=== PATIENT | male | born 1965 | race Hispanic/Latino ===

== ENCOUNTER 2024-08-05 11:06 | Emergency (ER) | payer OTHER ==
[~2024-08-05] VITALS: Ht 175.3 cm; Wt 167.8 kg
[2024-08-05 12:32] LABS: BASOPHILS # (AUTO) 0.04 K/uL (0.00-0.20); BASOPHILS % (AUTO) 0.3 % (0.0-5.0); EOSINOPHILS # (AUTO) 0.05 K/uL (0.00-0.70); EOSINOPHILS % (AUTO) 0.4 % (0.0-8.0); IMMATURE GRANULOCYTE ABSOLUTE 0.12 K/uL (0-1); LYMPHOCYTES # (AUTO) 1.1 K/uL (1.0-4.8); LYMPHOCYTES % (AUTO) 8.3 % (21.0-51.0); MEAN CORPUSCULAR HEMOGLOBIN 29.1 pg (27.0-33.0); MEAN CORPUSCULAR HGB CONC 33.6 g/dL (32.0-36.0); MEAN CORPUSCULAR VOLUME 86.7 fL (79-99); MONOCYTES % (AUTO) 7.7 % (3.0-13.0); NEUTROPHILS # (AUTO) 10.9 K/uL (1.8-7.7); NEUTROPHILS % (AUTO) 82.4 % (40.0-77.0); PLATELET COUNT (AUTO) 269 K/uL (130-400); WHITE BLOOD COUNT (AUTO) 13.2 K/uL (4.8-10.8)
--- NOTE | 2024-08-05 12:40 | ERN ---
General Chief Complaint: Testicular Injury/Pain Stated Complaint: SWOLLEN TESTICLES Time Seen by MD: 12:01 Time Seen by Midlevel: 12:01 Source: patient History of Present Illness Initial Comments 59-year-old male came in for scrotal swelling and pain which has been going on for the past week. Patient has been having some subjective fever. Patient otherwise has no concerns. Allergies: Coded Allergies: No Known Drug Allergies (Unverified Allergy, Unknown, 08/05/24) Past Medical History Past Medical History: No Pertinent History Past Surgical History: None ROS Dictation CONSTITUTIONAL: Negative except for HPI HEAD/FACE: Negative except for HPI EENT: Negative except for HPI RESPIRATORY: Negative except for HPI GASTROINTESTINAL/ABDOMINAL: Negative except for HPI GENITOURINARY: Negative except for HPI MUSCULOSKELETAL: Negative except for HPI INTEGUMENTARY: Negative except for HPI NEUROLOGICAL/PSYCH: Negative except for HPI HEMATOLOGIC/LYMPHATIC: Negative except for HPI All Systems Negative, Except as noted above. 13 point review of systems assessed and all negative except for above. Physical Exam Physical Exam Dictation There is swelling noted in right scrotum tenderness on palpation erythema extending to the inguinal region. Results Laboratory and Microbiology Lab and Micro Result Laboratory Tests Test 08/05/24 12:20 White Blood Count 13.2 K/uL (4.8-10.8) H Red Blood Count 4.50 MIL/uL (4.50-6.20) Hemoglobin 13.1 g/dL (14.0-18.0) L Hematocrit 39.0 % (42-54) L Mean Corpuscular Volume 86.7 fL (79-99) Mean Corpuscular Hemoglobin 29.1 pg (27.0-33.0) Mean Corpuscular Hemoglobin Concent 33.6 g/dL (32.0-36.0) Red Cell Distribution Width 13.0 % (11.0-15.5) Platelet Count 269 K/uL (130-400) Mean Platelet Volume 9.2 fL (7.5-10.5) Immature Granulocyte % (Auto) 0.9 % (0-1) Neutrophils (%) (Auto) 82.4 % (40.0-77.0) H Lymphocytes (%) (Auto) 8.3 % (21.0-51.0) L Monocytes (%) (Auto) 7.7 % (3.0-13.0) Eosinophils (%) (Auto) 0.4 % (0.0-8.0) Basophils (%) (Auto) 0.3 % (0.0-5.0) Neutrophils # (Auto) 10.9 K/uL (1.8-7.7) H Lymphocytes # (Auto) 1.1 K/uL (1.0-4.8) Monocytes # (Auto) 1.0 K/uL (0.1-1.0) Eosinophils # (Auto) 0.05 K/uL (0.00-0.70) Basophils # (Auto) 0.04 K/uL (0.00-0.20) Absolute Immature Granulocyte (auto 0.12 K/uL (0-1) Nucleated Red Blood Cells 0.0 % (0.0-0.19) White Cell Morphology Comment See comments Sodium Level 141 mmol/L (136-145) Potassium Level 4.1 mmol/L (3.5-5.1) Chloride Level 103 mmol/L (101-111) Carbon Dioxide Level 31 mmol/L (21-32) Blood Urea Nitrogen 13 mg/dL (7-18) Creatinine 0.6 mg/dL (0.5-1.3) Glomerular Filtration Rate Calc 111 mL/min (>90) Random Glucose 234 mg/dL (70-105) H Lactic Acid Level 1.6 mmol/L (0.8-2.5) Total Calcium 8.9 mg/dL (8.5-10.1) B-Type Natriuretic Peptide 30 pg/mL (0-100) Procalcitonin 0.06 ng/mL (0.05-0.5) MDM MDM: Differential diagnosis: Rationale: Tests considered and ordered secondary to shared decision making include: Previous outside records reviewed: Old ER visits. Risk of complication and/or morbidity or mortality of patient management: None Medications-Per medication reconciliation Need for hospitalization: Patient does meet criteria for hospitalization. Need for emergency major/minor surgery: No There are no social concerns with this patient. Prescription drug management Prescriptions will include symptomatic care Patient's prior external medical records from other ER visits were reviewed by me as indicated. Prior testing and results from previous visits were reviewed. Prior tests were taken into account with medical decision making and resource utilization, independent historian/historians were used to obtain complete medical history. I independently interpreted the test that were performed, results were reviewed by me and considered findings on radiology if ordered. Medical management and examination interpretation discussions were had by me with other qualified healthcare professionals as indicated for the patient's care. Patient needs urology consult for scrotal abscess. Our facility currently does not have a urologist on-call. Patient will be transferred to [facility] for Urology evaluation. Patient has been accepted bite [facility]. ED Course Orders Procedure Category Date Status Time 12 Lead Ekg Tracing- EKG 08/05/24 Complete Technical 12:12 Cbc With Differential LAB 08/05/24 Complete 12:12 Basic Metabolic Panel LAB 08/05/24 Complete 12:12 B-Type Natriuretic LAB 08/05/24 Complete Peptide 12:12 Lactic Acid LAB 08/05/24 Complete 12:12 Procalcitonin LAB 08/05/24 Complete 12:12 Urinalysis Profile LAB 08/05/24 Logged 12:12 Us Venous Doppler US 08/05/24 Resulted Unilateral 12:12 Us Scrotum & Contents US 08/05/24 Resulted 12:12 Tibia/Fibula 2vws Lt RAD 08/05/24 Resulted 12:12 Ankle Comp 3vws Lt RAD 08/05/24 Resulted 12:12 Vancomycin Protocol PHA 08/05/24 In Process (Vancomycin Protocol 13:30 Cefepime Hcl 1 Gm PHA 08/05/24 Complete Vial (Maxipime 1 Gm Vi 13:30 Cefepime Hcl 1 Gm PHA 08/05/24 Complete Vial (Maxipime 1 Gm Vi 13:30 Vancomycin 2gm/500 Ml PHA 08/05/24 In Process Bag (Vancomycin 2g 13:30 Vancomycin 1.75 PHA 08/06/24 In Process Gm/250 Ml Bag 02:00 Vancomycin Trough LAB 08/07/24 Verified 01:00 Metronidazole PHA 08/05/24 Verified 500mg/100ml Bag 15:00 Current Medications Medications (Trade) Dose Ordered Sig/Maria L Route PRN Reason Start Time Stop Time Status Last Admin Dose Admin Cefepime HCl (MAXipime 1 GM vial) 1 gm ONCE ONCE IVPB 08/05/24 13:30 08/05/24 13:31 DC 08/05/24 13:15 Cefepime HCl (MAXipime 1 GM vial) 1 gm Q12H IVPB 08/05/24 13:30 08/05/24 13:12 DC Vancomycin HCl 250 ml @ 125 mls/hr Q12H IV 08/06/24 02:00 08/16/24 01:59 Vancomycin HCl 500 ml @ 250 mls/hr ONCE ONCE IV 08/05/24 13:30 08/05/24 15:29 08/05/24 13:33 Vancomycin HCl (Vancomycin Protocol) 1 each AD IV 08/05/24 13:30 08/19/24 13:29 Vital Signs Date Time Temp Pulse Resp B/P (MAP) Pulse Ox O2 Delivery O2 Flow Rate FiO2 08/05/24 13:38 79 18 131/85 96 Room Air* 0 21 08/05/24 12:44 84 20 141/75 96 Room Air* 0 08/05/24 11:54 98.8 90 18 153/82 95 Room Air* 0 08/05/24 11:28 98.4 89 16 153/94 99 Room Air 0 DX & DISP Disposition: Transfer Departure Impression: Primary Impression: Scrotal abscess Condition: Stable Referrals: SELF,REFERRAL (PCP) GLADYS NGUYỄN Aug 05, 2024 12:40 GERTRUDIS BAUTISTA MD Aug 05, 2024 14:34
--- NOTE | 2024-08-05 12:46 | EKG ---
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
[2024-08-05 13:01] LABS: CREATININE 0.6 mg/dL (0.5-1.3); POTASSIUM 4.1 mmol/L (3.5-5.1)
--- NOTE | 2024-08-05 13:05 | NUR ---
SPOKE WITH SUM[facility] AT [facility]. TRANSFER REQUESTINITIATED AT THIS TIME.
[2024-08-05 13:08] LABS: B-TYPE NATRIURETIC PEPTIDE 30 pg/mL (0-100)
--- NOTE | 2024-08-05 13:10 | HMCIMG ---
ULTRASOUND VENOUS DOPPLER LEFT LOWER EXTREMITY INDICATION: Pain and swelling. TECHNIQUE: Routine grayscale and color Doppler ultrasound of the left lower extremity veins performed. COMPARISON: None. FINDINGS: The demonstrated veins of the left lower extremity including the common femoral vein, femoral vein, and popliteal vein are associated with normal compressibility, augmentation, and flow. Normal respiratory variation was identified. No evidence for echogenic intraluminal thrombus. IMPRESSION: No evidence for deep venous thrombosis.
[2024-08-05] MEDS: ceFEPime HCL 1 GM VIAL IVPB ONE (13:15)
--- NOTE | 2024-08-05 13:23 | HMCIMG ---
ULTRASOUND OF THE TESTICLES ULTRASOUND ABD VASCULAR LIMITED INDICATION: Scrotal pain COMPARISON: None FINDINGS: The right testicle measures 3.7 x 2.5 a 2.4 cm. It is normal in echogenicity without mass. Small to medium-sized simple hydrocele without varicocele demonstrated. Right epididymal head measures 0.6 cm. Right epididymis appears enlarged/swollen and slightly hypervascular. The left testicle measures 4.3 x 2.4 x 2.5 cm. It is normal in echogenicity without mass. Small to medium-sized simple hydrocele without varicocele demonstrated. Left epididymal head measures 0.5 cm. Color Doppler flow is normal throughout the both testicles.Spectral Doppler analysis demonstrates a normal waveform pattern in regards to both testicles. Bilateral scrotal wall thickening/edema, including hyperemia. 4.9 x 2.1 x 5.9 cm organized fluid collection with associated hyperemic flow demonstrated along the right scrotal wall. IMPRESSION: 5.9 cm right scrotal wall abscess superimposed upon diffuse scrotal cellulitis. Findings suggesting acute right epididymitis without any testicular abnormality. Small to medium-sized simple bilateral hydroceles.
--- NOTE | 2024-08-05 13:25 | HMCIMG ---
LEFT TIBIA AND FIBULA RADIOGRAPHS - 2 VIEWS INDICATION: Pain COMPARISON: None. FINDINGS: AP and lateral views. No evidence for acute fracture or dislocation. Mild tricompartmental right knee osteoarthropathy. Subcentimeter plantar calcaneal spur. IMPRESSION: No evidence for fracture or dislocation.
--- NOTE | 2024-08-05 13:25 | HMCIMG ---
LEFT ANKLE RADIOGRAPHS - 3 VIEWS INDICATION: Pain after fall COMPARISON: None FINDINGS: AP, lateral, and oblique views. No fracture or dislocation identified. The talar dome is intact. Ankle mortise and tibial plafond are well maintained. No significant joint effusion is present. Subcentimeter plantar calcaneal spur. IMPRESSION: No evidence for fracture or dislocation.
[2024-08-05] MEDS ORDERED: VANCOMYCIN PROTOCOL PER PHARMACY IV SCH (13:30)
[2024-08-05] MEDS ORDERED: ceFEPime HCL 1 GM VIAL IVPB SCH (13:30)
[2024-08-05] MEDS: VANCOMYCIN 2GM/500 ML BAG 500 ML IV ONE (13:33)
--- NOTE | 2024-08-05 15:10 | NUR ---
RECEIVED CALL FROM SUMMER AT [facility], PT WAS ACCEPTED FOR TRANSFER AND IS NOW WAITING FOR BED ASSIGNMENT.
[2024-08-05] MEDS: metRONIDazole 500MG/100ML BAG IV ONE (15:16)
[2024-08-05 15:29] LABS: ADD UA MICROSCOPIC YES; APPEARANCE,URINE CLEAR (CLEAR); BILIRUBIN,URINE NEGATIVE (NEGATIVE); COLOR,URINE YELLOW (YELLOW); GLUCOSE, URINE (UA) >=1000 mg/dL (NEGATIVE); KETONES,URINE 100 mg/dL (NEGATIVE); LEUKOCYTE ESTERASE ,URINE NEGATIVE Leu/uL (NEGATIVE); NITRATE,URINE NEGATIVE (NEGATIVE); OCCULT BLOOD,URINE NEGATIVE (NEGATIVE); PH,URINE 6.5 (5.0-8.0); PROTEIN,URINE NEGATIVE (NEGATIVE)
[2024-08-05 15:30] LABS: MUCUS,URINE RARE LPF (None Seen); RBC,URINE 0-1 /HPF (0-1); WBC,URINE 0-1 /HPF (0-1)
--- NOTE | 2024-08-05 18:15 | NUR ---
[place] [facility] [place].
--- NOTE | 2024-08-05 18:24 | NUR ---
[facility] CALLED FOR TRANSFER TO [place] [id number]
--- NOTE | 2024-08-05 18:33 | NUR ---
REPORT CALLED TO [facility] 3SE ROOM [id number], SPOKE WITH LINDSAY PEARCE.
[2024-08-05 19:29] VITALS: BP 126/65; PULSE 79; RESP 20; TEMP 98.7; O2SAT 99
[2024-08-06] MEDS ORDERED: VANCOMYCIN 1.75 GM/250 ML BAG 250 ML IV SCH (02:00)
== END 2024-08-05 19:34 | disposition short-term general hospital (02) ==
LOC: EDH 11:06
DX: N49.2 Inflammatory disorders of scrotum (principal); M79.662 Pain in left lower leg
CPT/HCPCS: 99285; 96365; 96366; 93971; 80048; 83880; 85025; 83605; 81001; 36415; 73610; 73590; 76870; 96368; 93005; 84145; J0692; J3490; J3370